=== PATIENT | female | born 1955 | race Caucasian/White ===

== ENCOUNTER 2019-07-22 01:02 | Emergency (ER) | payer OTHER ==
[~2019-07-22] VITALS: Ht 157.5 cm; Wt 113.4 kg
[~2019-07-22 01:02] MED LIST: ASPIRIN325 PO; IRON325 PO; LEVOTHYROXINE 0.1 MG PO; LISINOPRIL10 MG PO; PERCOCET 5-3251 EACH PO; PRILOSEC40 MG PO; RED YEAST RICE600 M1 PO
[2019-07-22] MEDS ORDERED: LEVO-T100 MCG PO (01:08)
[2019-07-22] MEDS ORDERED: BENTYL 10 MG CA10 M1 PO (01:10)
[2019-07-22] MEDS ORDERED: NORVASC 2.5 MG2.5 M1 PO (01:10)
[2019-07-22] MEDS ORDERED: ALAVERT10 M1 PO (01:11)
[2019-07-22] MEDS ORDERED: [UNRECOGNIZED DRUG - OTHER] (01:11)
[2019-07-22] MEDS ORDERED: REFRESH TEARS15 ML (01:12)
[2019-07-22 03:42] VITALS: BP 141/77
== END 2019-07-22 03:30 | disposition home or self-care (01) ==
LOC: ER 01:02
DX: M25.561 Pain in right knee (principal); I10 Essential (primary) hypertension; E03.9 Hypothyroidism, unspecified; K21.9 Gastro-esophageal reflux disease without esophagitis; Z90.49 Acquired absence of other specified parts of digestive tract; Z90.710 Acquired absence of both cervix and uterus; Z90.721 Acquired absence of ovaries, unilateral; Z88.0 Allergy status to penicillin; Z88.8 Allergy status to other drugs, medicaments and biological substances; Z87.891 Personal history of nicotine dependence

== ENCOUNTER 2020-12-31 19:01 | Inpatient (IN) | payer OTHER ==
[~2020-12-31] VITALS: Ht 157.5 cm; Wt 127.0 kg
[~2020-12-31 19:01] MED LIST changes: +ALAVERT10 M1 PO; +BENTYL 10 MG CA10 M1 PO; +LEVO-T100 MCG PO; +NORVASC 2.5 MG2.5 M1 PO; +REFRESH TEARS15 ML; +[UNRECOGNIZED DRUG - OTHER]
[2020-12-31 19:05] VITALS: BP 128/100
[2020-12-31 19:42] LABS: ABSOLUTE NEUTROPHILS 11.3 thou/uL (1.4-8.2); BASOPHILS 0.8 % (0.0-2.0); EOSINOPHILS 0.7 % (0.0-3.0); HEMATOCRIT 40.6 % (37.0-47.0); HEMOGLOBIN 13.1 gm/dL (12.0-15.0); LYMPHOCYTES 19.7 % (24.0-44.0); MCH 28.2 pg (26.0-34.0); MCHC 32.3 g/dL (28.0-37.0); MCV 87.5 fL (80.0-100.0); MONOCYTES 5.3 % (1.0-8.0); PLATELET COUNT 353 thou/uL (150-400); POLYS 73.5 % (36.0-66.0); RBC 4.63 mil/uL (4.20-5.00); RDW 15.6 % (10.5-14.5); WBC 15.3 thou/uL (4.0-11.0)
[2020-12-31 19:51] LABS: POTASSIUM 3.7 mmol/L (3.5-5.1)
[2020-12-31 22:24] VITALS: BP 141/66
--- NOTE | 2020-12-31 22:25 | NUR ---
HAND OFF TOOL SENT TO FLOOR
[2020-12-31] MEDS ORDERED: CANDESARTAN CIL32 MG PO (22:29)
[2020-12-31] MEDS ORDERED: KLOR-CON M2020 MEQ PO (22:31)
[2020-12-31] MEDS ORDERED: LIPITOR10 MG PO (22:31)
[2020-12-31] MEDS ORDERED: ASPIRIN EC325 M1 PO (22:32)
[2020-12-31 22:45] VITALS: BP 135/51
[2020-12-31 23:10] VITALS: BP 153/80
--- NOTE | 2021-01-01 02:24 | NUR ---
PT ARRIVED FROM THE ER @2300 A&OX4 ADMISSION DONE AND PT ORIENTED TO THE UNIT. RT FOOT SPLINT INTACT. PT NPO AT MIDNIGHT FOR SX TOMORROW. CLEAR LUNGS SOUNDS. IV INTACT AND SALINE LOCK. SCD ON LEFT FOOT. PT DENIES NAUSEA AND VOMITTING UP WITH ASSISTX1 TO THE BSC. FALL PREC IN PLACE AND CALL LIGHT AT REACH WILL CONT TO MONITOR.
[2021-01-01 03:50] VITALS: BP 130/90
[2021-01-01 05:08] LABS: HEMATOCRIT 35.9 % (37.0-47.0); HEMOGLOBIN 11.6 gm/dL (12.0-15.0); MCH 28.8 pg (26.0-34.0); MCHC 32.3 g/dL (28.0-37.0); RBC 4.03 mil/uL (4.20-5.00); RDW 16.1 % (10.5-14.5); WBC 15.6 thou/uL (4.0-11.0)
[2021-01-01 06:08] LABS: CALCIUM 8.3 mg/dL (8.5-10.1); CREATININE 0.8 mg/dL (0.6-1.0); POTASSIUM 3.8 mmol/L (3.5-5.1)
[2021-01-01 07:10] VITALS: BP 146/76
--- NOTE | 2021-01-01 07:22 | EKG ---
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
--- NOTE | 2021-01-01 12:51 | NUR ---
ASSESSMENT: CM REVIEWED CHART AND SPOKE WITH PT AT THE BEDSIDE ALONG WITH HER . PT IS ALERT AND ORIENTED X4. PT WAS ADMITTED DUE TO RT ANKLE FAX. PATIENT HAS BEEN MEDICALLY CLEARED FOR SURGERY, [facility]THO IS CONSULTED AND AWAITING INPUT FROM THEM AT THIS TIME. PT REPORTS LIVING IN A HANDICAP ACCESSIBLE HOME WITH NO STEPS TO ENTER OR ONCE INSIDE. PT REPORTS SHE HAS ALOT OF DME AT HOME INCLUDING WALKER, WHEECHAIR, AND CANE. PT REPORTS SHE HAS A BATH BENCH IF N EEDED. PT REPORTS NORMALLY BEING INDEPENDENT WITH ADLS AND AMBULATION. PT IS SHOWING PATIENT PAY BUT WHEN CM MET WITH PATIENT SHE REPORTS HAVING [employer]URANCE STARTING December SHE IS AN EMPLOYEE HERE AT [employer]. CM NOTIFIED UR RN TO HAVE VERIFIED/CORRECTED. PT REPORTS NO HX OF HH/POST ACUTE CARE. AWAITING INPUT FROM ORTHO AT THIS TIME.
[2021-01-01 13:20] LABS: URINE BILIRUBIN NEGATIVE (Negative); URINE BLOOD TRACE (Negative); URINE CLARITY SL CLOUDY; URINE COLOR YELLOW; URINE GLUCOSE-RANDOM* NEGATIVE (Negative); URINE KETONES NEGATIVE (Negative); URINE LEUKOCYTES TRACE (Negative); URINE NITRITE POSITIVE (Negative); URINE PROTEIN (DIPSTICK) NEGATIVE (Negative); URINE SPECIFIC GRAVITY 1.025 (1.005-1.035); URINE UROBILINOGEN 0.2 E.U./dl (0.2-1.0)
[2021-01-01 13:36] LABS: SQUAMOUS >10 Many /LPF (0-3)
[2021-01-01 13:37] LABS: CASTS None Seen /LPF (None Seen); MUCUS 4-6 Moderate strn/LPF (None Seen); URINE WBC >25 Many /HPF (NONE SEEN)
[2021-01-01 13:38] LABS: URINE RBC 1-2 Rare /HPF (NONE SEEN)
[2021-01-01 13:39] LABS: BACTERIA >30 Many /HPF (None Seen); CRYSTALS None Seen /LPF (None Seen)
[2021-01-01 13:42] LABS: WBC CLUMPS Occasional (None Seen)
--- NOTE | 2021-01-01 14:30 | NUR ---
ASSUMED PT CARE AROUND 0700. PT ALERT X ORIENTED X 4. ON ROOM AIR. IV RT/AC/SL.1 X PERSON ASST TO BEDSIDE COMMODE. NPO FOR SURGERY SINCE MIDNIGHT. PAIN PARTIALLY CONTROLLED BY MORPINE. SPLINT ON THE RIGHT ANKLE. REFUSED BP MEDICINE. URINE SPECIMEN FOR UA COLLECTED AND SENT TO LAB BY RN. WENT FOR SURGERY AROUND 1430.
[2021-01-01 17:45] VITALS: BP 148/91
[2021-01-01 19:50] VITALS: BP 139/77
[2021-01-01 20:39] VITALS: BP 122/76
[2021-01-02 00:20] VITALS: BP 138/76
--- NOTE | 2021-01-02 01:05 | NUR ---
ASSESSED AT START OF SHIFT. PT RESTING WELL IN BED. PAIN WELL CONTROLLED. REQUESTED FOR PO PAIN MEDICATION AND LORATIDINE MEDS GIVEN. DIGITAL CONTENT MANAGER SLIP OPERATOR NOTIFIED. RT FOOT DRESSING C/D/I WITH TIFFANY WRAP AND IN SPLINTS. IV INTACT AND FLUIDS INFUSING. UP WITH ASSIST X1 TO BSC. DENIES NAUSEA AND VOMITING. FALL PREC IN PLACE AND CALL LIGHT AT REACH WILL CONT TO MONITOR.
[2021-01-02 03:42] VITALS: BP 120/73
[2021-01-02 04:42] LABS: HEMATOCRIT 31.8 % (37.0-47.0); HEMOGLOBIN 10.4 gm/dL (12.0-15.0); MCH 28.9 pg (26.0-34.0); MCHC 32.8 g/dL (28.0-37.0); MCV 87.9 fL (80.0-100.0); RBC 3.62 mil/uL (4.20-5.00); RDW 15.9 % (10.5-14.5); WBC 12.4 thou/uL (4.0-11.0)
[2021-01-02 08:45] VITALS: BP 135/72
--- NOTE | 2021-01-02 10:29 | NUR ---
ASSUMED CARE OF PT AT 0700 THIS MORNING. PT WAS A/OX4, SKIN GRPH WITH BANDADGE ON RIGHT OCCIPITAL LOBE AND DRESSING OVER RIGHT EYE, C/D/I. SKIN INTACT, W/D/ATR. ASSESSMENT CHARTED AND OTHERWISE UNREMARKABLE. IV IN LEFT FA, SL. PT IS TO BE DISCHARGED WHEN FAMILY IS READY. CALL LIGHT AND OTHER NEEDS ARE WITHIN REACH. MEDS AND TX GIVEN NEEDED AND SCHEDULED. PT IS BEING DISCHARGED AT 1015, IV IS DC'D, DISCHARGE ORDERS AND EDUCATION MATERIAL GIVEN TO FAMILY AND SIGNED BY PT.
[2021-01-02] MEDS ORDERED: METFORMIN HCL500 M3 PO (11:04)
[2021-01-02] MEDS ORDERED: KEFLEX250 MG PO (11:04)
[2021-01-02] MEDS ORDERED: COLACE100 MG PO (11:05)
[2021-01-02] MEDS ORDERED: NORCO5 PO (11:05)
--- NOTE | 2021-01-02 12:53 | NUR ---
ASSUMED CARE OF PT AT 0700 THIS MORNING. PT WAS ADMITTED FOR RIGHT ANKLE FX. INCISIONS ARE COVERED WITH PADDING AND TIFFANY WRAP, C/D/I. PT IS A/OX4, ASSESSMENT CHARTED AND OTHERWISE UNREMARKABLE. CALL LIGHT AND OTHER NEEDS ARE WITHIN REACH. PT CAN AMBULATE WITH WALKER AND IS SB ASST. IV IN RIGHT FA, SL WITH ANTIBIOTICS RUNNING AT 330ML/HR. MEDS AND TX GIVEN NEEDED AND SCHEDULED. PT MAY BE DISCHARGED LATER IN THE AFTERNOON. WAITING ON DR. GALAVIZ TO DETERMINE.
[2021-01-02 13:18] VITALS: BP 135/72
--- NOTE | 2021-01-04 06:47 | NUR ---
PATIENT D/C PRIOR TO OT EVAL BEING PERFORMED
== END 2021-01-02 14:51 | disposition home or self-care (01) | DRG 493 ==
LOC: ER 19:01 → EROBS 22:10 → 4S 22:51
PROVIDERS: Emergency Medicine; Hospitalist; Nurse Practitioner Family; ADMIT Surgery; ATTEND Surgery
PROC: 0SSF0ZZ Reposition Right Ankle Joint, Open Approach (ICD-10-PCS; principal; 2020-12-31)
PROC: 0QSG04Z Reposition Right Tibia with Internal Fixation Device, Open Approach (ICD-10-PCS; 2021-01-01)
DX: S82.841A Displaced bimalleolar fracture of right lower leg, initial encounter for closed fracture (principal); N39.0 Urinary tract infection, site not specified; Z68.43 Body mass index [BMI] 50.0-59.9, adult; E03.9 Hypothyroidism, unspecified; I10 Essential (primary) hypertension; E78.5 Hyperlipidemia, unspecified; E66.01 Morbid (severe) obesity due to excess calories; S82.51XA Displaced fracture of medial malleolus of right tibia, initial encounter for closed fracture; K21.9 Gastro-esophageal reflux disease without esophagitis; Z90.710 Acquired absence of both cervix and uterus; Z90.721 Acquired absence of ovaries, unilateral; Z90.49 Acquired absence of other specified parts of digestive tract; Z87.891 Personal history of nicotine dependence; Z88.0 Allergy status to penicillin; Z88.8 Allergy status to other drugs, medicaments and biological substances; Z79.82 Long term (current) use of aspirin; Z79.899 Other long term (current) drug therapy; W18.39XA Other fall on same level, initial encounter; Y93.89 Activity, other specified; Y92.89 Other specified places as the place of occurrence of the external cause; Y99.8 Other external cause status
CPT/HCPCS: 10102; 50010

== ENCOUNTER → 2021-02-18 | Outpatient (CLI) | payer OTHER ==
[~2021-02-18] MED LIST changes: +ASPIRIN EC325 M1 PO; +CANDESARTAN CIL32 MG PO; +COLACE100 MG PO; +KEFLEX250 MG PO; +KLOR-CON M2020 MEQ PO; +LIPITOR10 MG PO; +METFORMIN HCL500 M3 PO; +NORCO5 PO
== END ==
LOC: ULTRA 08:48
PROVIDERS: ATTEND Family Medicine
DX: K76.0 Fatty (change of) liver, not elsewhere classified (principal)

== ENCOUNTER → 2021-03-15 | Outpatient (CLI) | payer OTHER | LOC: NUC 09:32 | PROVIDERS: ATTEND Family Medicine | DX: S82.891A Other fracture of right lower leg, initial encounter for closed fracture (principal); M80.00XA Age-related osteoporosis with current pathological fracture, unspecified site, initial encounter for fracture; M85.88 Other specified disorders of bone density and structure, other site; X58.XXXA Exposure to other specified factors, initial encounter; Y92.89 Other specified places as the place of occurrence of the external cause; Y93.89 Activity, other specified; Y99.8 Other external cause status ==

== ENCOUNTER 2021-06-01 10:34 | Emergency (ER) | payer OTHER ==
[~2021-06-01] VITALS: Ht 157.5 cm; Wt 117.9 kg
[~2021-06-01 10:34] MED LIST changes: -LEVO-T100 MCG PO; +LEVOTHYROXINE137 MCG PO
[2021-06-01 11:27] LABS: ABSOLUTE NEUTROPHILS 7.6 thou/uL (1.4-8.2); BASOPHILS 1.1 % (0.0-2.0); EOSINOPHILS 1.7 % (0.0-3.0); HEMATOCRIT 39.6 % (37.0-47.0); HEMOGLOBIN 12.5 gm/dL (12.0-15.0); LYMPHOCYTES 20.1 % (24.0-44.0); MCHC 31.6 g/dL (28.0-37.0); MCV 85.5 fL (80.0-100.0); PLATELET COUNT 349 thou/uL (150-400); POLYS 70.1 % (36.0-66.0); RBC 4.63 mil/uL (4.20-5.00); RDW 15.5 % (10.5-14.5); WBC 10.9 thou/uL (4.0-11.0)
[2021-06-01 11:37] LABS: CALCIUM 9.2 mg/dL (8.5-10.1); CREATININE 0.8 mg/dL (0.6-1.0); POTASSIUM 3.9 mmol/L (3.5-5.1)
[2021-06-01 11:38] LABS: URINE BILIRUBIN NEGATIVE (Negative); URINE BLOOD TRACE (Negative); URINE COLOR YELLOW; URINE GLUCOSE-RANDOM* NEGATIVE (Negative); URINE KETONES NEGATIVE (Negative); URINE PROTEIN (DIPSTICK) NEGATIVE (Negative); URINE SPECIFIC GRAVITY >= 1.030 (1.005-1.035); URINE UROBILINOGEN 0.2 E.U./dl (0.2-1.0)
[2021-06-01 11:39] LABS: URINE CLARITY HAZY; URINE LEUKOCYTES-REFLEX 1+ (Negative); URINE NITRITE-REFLEX POSITIVE (Negative)
[2021-06-01 11:42] LABS: APTT 26.8 Seconds (24.5-32.8); INR 0.92; PROTIME 10.1 Seconds (10.5-12.1)
[2021-06-01 11:44] LABS: ALBUMIN 3.3 g/dL (3.4-5.0); TOTAL BILIRUBIN 0.2 mg/dL (0.2-1.0)
[2021-06-01 12:00] LABS: CASTS None Seen /LPF (None Seen); MUCUS 4-6 Moderate strn/LPF (None Seen); SQUAMOUS 4-10 Moderate /LPF (0-3)
[2021-06-01 12:01] LABS: BACTERIA-REFLEX >30 Many /HPF (None Seen); CRYSTALS None Seen /LPF (None Seen); URINE RBC 1-2 Rare /HPF (NONE SEEN); URINE WBC-REFLEX >25 Many /HPF (0-5)
--- NOTE | 2021-06-01 13:25 | EKG ---
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 Member: ANNE-MARIE : 1955 Requested By: Rachel Blair Order Number: [id number] MD: Denys Wood Measurements Intervals [place] Rate: 62 P: 50 [place]: 198 QRS: -20 QRSD: 109 T: 44 QT: 481 QTc: 489 Interpretive Statements Sinus rhythm Left ventricular hypertrophy Compared to ECG 12/31/2020 21:37:44 Myocardial infarct finding no longer present Electronically Signed On 06-01-2021 13:25:10 MASH TUB COOKER by Denys Wood [email or web address] <ELECTRONICALLY SIGNED> By: Denys Wood MD, FACC 06/01/21 1325 1059 1059 Denys Wood MD, FACC /EPI
[2021-06-01] MEDS ORDERED: ATIVAN0.5 M1 PO ×2 (18:45)
[2021-06-01] MEDS ORDERED: MACROBID 100 M100 M1 PO ×2 (18:52)
[2021-06-01 18:53] VITALS: BP 145/87
== END 2021-06-01 18:53 | disposition home or self-care (01) ==
LOC: ER 10:34
PROVIDERS: Nurse Practitioner
DX: G43.909 Migraine, unspecified, not intractable, without status migrainosus (principal); R42 Dizziness and giddiness; R11.0 Nausea; I10 Essential (primary) hypertension; E03.9 Hypothyroidism, unspecified; K21.9 Gastro-esophageal reflux disease without esophagitis; E66.9 Obesity, unspecified; Z68.42 Body mass index [BMI] 45.0-49.9, adult; Z98.890 Other specified postprocedural states; Z90.721 Acquired absence of ovaries, unilateral; Z79.84 Long term (current) use of oral hypoglycemic drugs; Z79.82 Long term (current) use of aspirin; Z79.1 Long term (current) use of non-steroidal anti-inflammatories (NSAID); Z79.891 Long term (current) use of opiate analgesic; Z79.899 Other long term (current) drug therapy; Z88.0 Allergy status to penicillin; Z88.6 Allergy status to analgesic agent; Z88.8 Allergy status to other drugs, medicaments and biological substances; Z87.891 Personal history of nicotine dependence

== ENCOUNTER 2021-06-04 09:38 | Inpatient (IN) | payer OTHER ==
[~2021-06-04] VITALS: Ht 157.5 cm; Wt 121.6 kg
[~2021-06-04 09:38] MED LIST changes: +ATIVAN0.5 M1 PO; +MACROBID 100 M100 M1 PO
[2021-06-04 09:50] VITALS: BP 145/69
[2021-06-04 10:48] LABS: HEMATOCRIT 42.7 % (37.0-47.0); MCH 27.4 pg (26.0-34.0); MCHC 33.9 g/dL (28.0-37.0); MCV 80.9 fL (80.0-100.0); RBC 5.28 mil/uL (4.20-5.00); RDW 19.1 % (10.5-14.5); WBC 14.8 thou/uL (4.0-11.0)
[2021-06-04 10:51] LABS: HEMOGLOBIN 14.5 gm/dL (12.0-15.0)
[2021-06-04 11:26] LABS: CALCIUM 9.6 mg/dL (8.5-10.1); CREATININE 1.5 mg/dL (0.6-1.0); POTASSIUM 4.2 mmol/L (3.5-5.1)
[2021-06-04 11:34] LABS: TOTAL BILIRUBIN 1.8 mg/dL (0.2-1.0); TOTAL PROTEIN 6.8 g/dL (6.4-8.2)
[2021-06-04 13:56] LABS: URINE BILIRUBIN 2+ (Negative); URINE BLOOD NEGATIVE (Negative); URINE CLARITY SL CLOUDY; URINE COLOR YELLOW; URINE GLUCOSE-RANDOM* NEGATIVE (Negative); URINE KETONES TRACE (Negative); URINE PROTEIN (DIPSTICK) 1+ (Negative)
[2021-06-04 14:04] LABS: ICTOTEST (BILI CONFIRMATORY) Positive (Negative); URINE LEUKOCYTES-REFLEX 1+ (Negative); URINE NITRITE-REFLEX POSITIVE (Negative)
[2021-06-04 14:12] LABS: MUCUS 4-6 Moderate strn/LPF (None Seen); SQUAMOUS 4-10 Moderate /LPF (0-3)
[2021-06-04 14:13] LABS: CRYSTALS None Seen /LPF (None Seen); URINE RBC 1-2 Rare /HPF (NONE SEEN)
[2021-06-04 14:14] LABS: FINE GRANULAR CASTS 0-3 Few /LPF (None Seen); HYALINE CASTS 0-3 Few /LPF (None Seen)
[2021-06-04 14:30] LABS: ABSOLUTE NEUTROPHILS 13.6 thou/uL (1.4-8.2)
[2021-06-04 14:36] LABS: ANISOCYTOSIS 2+
[2021-06-04 14:37] LABS: LARGE PLATELETS OCCASIONAL; POIKILOCYTOSIS 1+
[2021-06-04 14:38] LABS: PLATELET COUNT 276 thou/uL (150-400); PLATELET ESTIMATE NORMAL
[2021-06-04 15:36] LABS: URINE BILIRUBIN 2+ (Negative); URINE BLOOD NEGATIVE (Negative); URINE CLARITY CLEAR; URINE COLOR YELLOW; URINE GLUCOSE-RANDOM* NEGATIVE (Negative); URINE KETONES TRACE (Negative); URINE PROTEIN (DIPSTICK) 1+ (Negative); URINE SPECIFIC GRAVITY 1.015 (1.005-1.035)
[2021-06-04 15:40] LABS: URINE LEUKOCYTES-REFLEX 1+ (Negative); URINE NITRITE-REFLEX POSITIVE (Negative)
[2021-06-04 15:42] LABS: BACTERIA-REFLEX None Seen /HPF (None Seen); SQUAMOUS 0-3 Few /LPF (0-3); URINE RBC None Seen /HPF (NONE SEEN); URINE WBC-REFLEX 0-5 Rare /HPF (0-5)
[2021-06-04 15:43] LABS: CRYSTALS None Seen /LPF (None Seen)
[2021-06-04] MEDS ORDERED: PRAVACHOL40 MG PO ×2 (17:38)
[2021-06-04] MEDS ORDERED: GLUCOSAMINE HC500 M1 PO ×2 (17:40)
--- NOTE | 2021-06-04 20:10 | NUR ---
Pt. arrived to the unit from the emergency room accompanied by staff. She is alert and oriented. Admission assessment and history is completed. Bed alarm is on. No c/o pain.
[2021-06-04 20:12] VITALS: BP 146/71
--- NOTE | 2021-06-05 00:30 | NUR ---
Pt. with elevated temp and low blood pressure. (see vs). Call palced to Raissa PALAFOX.
--- NOTE | 2021-06-05 01:30 | NUR ---
Blood pressure and tmeperature retaken and bp taken manually. Some improvement noted (see vs). Raissa PALAFOX called and notified and no new orders at this time.
[2021-06-05 01:40] VITALS: BP 110/40
[2021-06-05] MEDS ORDERED: COQ-10100 MG PO ×2 (03:09)
[2021-06-05] MEDS ORDERED: POTASSIUM GLUCONATE PO ×2 (03:11)
[2021-06-05] MEDS ORDERED: CALTRATE 600+D1 EAC1 PO ×2 (03:13)
[2021-06-05] MEDS ORDERED: ONDANSETRON HCL4 M2 PO ×2 (03:14)
[2021-06-05] MEDS ORDERED: TYLENOL ES PO ×2 (03:16)
[2021-06-05] MEDS ORDERED: XIIDRA1 EACH EA. EYE ×2 (03:19)
[2021-06-05 05:11] VITALS: BP 140/48
[2021-06-05 06:14] LABS: ABSOLUTE NEUTROPHILS 5.9 thou/uL (1.4-8.2); BASOPHILS 0.4 % (0.0-2.0); EOSINOPHILS 0.6 % (0.0-3.0); HEMATOCRIT 34.2 % (37.0-47.0); LYMPHOCYTES 14.9 % (24.0-44.0); MCH 27.3 pg (26.0-34.0); MCHC 32.3 g/dL (28.0-37.0); MCV 84.6 fL (80.0-100.0); MONOCYTES 5.7 % (1.0-8.0); PLATELET COUNT 237 thou/uL (150-400); POLYS 78.4 % (36.0-66.0); RBC 4.05 mil/uL (4.20-5.00); RDW 15.9 % (10.5-14.5); WBC 7.5 thou/uL (4.0-11.0)
[2021-06-05 06:26] LABS: HEMOGLOBIN 11.1 gm/dL (12.0-15.0)
--- NOTE | 2021-06-05 06:38 | NUR ---
Pt. rested quietly during the night when checked on during frequent rounds. Up to the toilet with walker and assistance of one. Afebrile this am.
[2021-06-05 06:51] LABS: CALCIUM 8.2 mg/dL (8.5-10.1); MAGNESIUM 1.9 mg/dL (1.8-2.4); POTASSIUM 3.7 mmol/L (3.5-5.1); TOTAL BILIRUBIN 0.8 mg/dL (0.2-1.0); TOTAL PROTEIN 5.1 g/dL (6.4-8.2)
[2021-06-05 08:23] VITALS: BP 104/53
--- NOTE | 2021-06-05 12:42 | EKG ---
[address] [place] [address] ELECTROCARDIOGRAM REPORT Name: TORSTEN MENENDEZ Room #: 458-P ADM IN M.R.#: [id number] Admission: 06/04/21 Attend Phys: Alejandro Villasenor MD Discharge: Date of : 57 Report #: [id number] [facility] ED Test Date: 2021-06-04 Test Time: 09:44:46 Pat Name: TORSTEN MENENDEZ Department: Room: 458 Gender: F Bonding Molder: DELMIS : 1955 Requested By: Satish Lewis Order Number: [id number] MD: Bridger Brunson Measurements Intervals [place] Rate: 114 P: 35 CT: 153 QRS: -55 QRSD: 98 T: 18 QT: 320 QTc: 441 Interpretive Statements Sinus tachycardia Left anterior fascicular block Low voltage, precordial leads Left ventricular hypertrophy Anterior Q waves, possibly due to LVH Compared to ECG 06/01/2021 10:59:53 Left anterior fascicular block now present Low QRS voltage now present Q waves now present Sinus rhythm no longer present Electronically Signed On 06-05-2021 12:42:38 ACCESS SERVICE REPRESENTATIVE by Bridger Brunson [email or web address] <ELECTRONICALLY SIGNED> By: Bridger Brunson MD 06/05/21 1242 0944 Bridger Brunson MD /EPI
[2021-06-05 20:12] VITALS: BP 116/94
--- NOTE | 2021-06-06 04:12 | NUR ---
Pt. rested quietly during the night when checked on during frequent rounds. She ambulated to the bathroom with walker without difficulty. No c/o pain.
--- NOTE | 2021-06-06 07:47 | O ---
[facility] [place] [address] OPERATIVE REPORT Name: TORSTEN MENENDEZ Room #: 458-P [facility] IN M.R.#: [id number] Admission: 06/04/21 Attend Phys: Alejandro Villasenor MD Discharge: Date of : 57 Report #: [id number] THIS REPORT FOR: cc: Best Mercado MD, Neal A. MD Flum,Raffi Suosa MD ~ DATE OF SERVICE: 06/05/2021 PREOPERATIVE DIAGNOSES: Right ureteral stone, urinary tract infection. POSTOPERATIVE DIAGNOSES: Right ureteral stone, urinary tract infection. PROCEDURES PERFORMED: Cystoscopy, right retrograde pyelogram, right ureteral stent placement. SURGEON: Raffi Lion MD FIRE POT OPERATOR: None. ANESTHESIA: General. ESTIMATED BLOOD LOSS: Minimal. FLUIDS: See anesthesia flow sheet. SPECIMENS: None. DRAINS: Right 6-Citizen [place] x 24 cm double-J ureteral stent. COMPLICATIONS: None. INDICATIONS: This is a 65-year-old woman admitted with fevers, right-sided abdominal pain. CT scan demonstrated a 3 x 7 mm right distal ureteral stone, discussed the need for urgent right ureteral stent placement. Risks, benefits and alternatives were discussed at length the risks including bleeding, infection, damage to the urethra, bladder, ureteral stricture, need for stent, need for subsequent procedures, as well as cardiopulmonary complications. She acknowledged that she understood these risks. She has pertinent questions, which were answered and ultimately elected to proceed. Of note, we specifically discussed that this is a temporizing measure and that she would need to follow up for a second procedure to remove her ureteral stent and address her stone. She and her acknowledged they understood this. PROCEDURE AND FINDINGS: The patient was identified in the preoperative holding area. She was marked and consented. She was transported to the operative suite [facility] [address] [place] [address] OPERATIVE REPORT Name: SHONJUANA JH Room #: 458-P [facility] IN .R.#: [id number] Admission: 06/04/21 Attend Phys: Alejandro Villasenor MD Discharge: Date of : 57 Report #: [id number] where general anesthetic was administered, positioned in the lithotomy position with all appropriate pressure points padded. She was prepped and draped in typical sterile fashion. Time-out was performed, confirming correct patient and procedure and laterality. She received preoperative IV antibiotics. We began by inserting the rigid cystoscope through the urethra into the bladder. Urethra and bladder neck were without abnormality. Bladder was unremarkable. No stones, tumors, or other lesions. Bilateral ureteral orifices were orthotopic in position, normal in appearance. The right ureteral orifice was gently cannulated with 5-Citizen [place] open-ended catheter. Retrograde pyelogram was performed. This demonstrated minimal hydronephrosis as was the case on her CT scan. I could not appreciate a discrete filling defect in the distal ureter. Nonetheless, given that she had not passed a stone and was continued to have fevers and intermittent pain, I felt it important to place a stent. A sensor wire was placed up the right ureter into the right kidney, coiled in the collecting system. A 6 Citizen [place] x 24 cm double-J ureteral stent was placed under radiographic guidance. Good proximal and distal curls confirmed radiographically. Cystoscope was repassed in the bladder. Good distal curl confirmed visually. Bladder was drained, scope was removed. The procedure was terminated. The patient was awakened and transported to the recovery room, having suffered no apparent complications, having tolerated the procedure well. <ELECTRONICALLY SIGNED> By: Raffi Lion MD 06/06/21 0747 1523 1613 Raffi Lion MD /nt
[2021-06-06 07:49] VITALS: BP 112/63
[2021-06-06 12:53] VITALS: BP 112/63
[2021-06-06] MEDS ORDERED: FLOMAX0.4 MG PO ×2 (13:14)
[2021-06-06] MEDS ORDERED: CEFDINIR300 MG PO ×4 (13:15→13:30)
[2021-06-06 13:25] VITALS: BP 112/63
[2021-06-06 13:26] VITALS: BP 112/63
--- NOTE | 2021-06-06 15:59 | NUR ---
Assumed pt care this am from overnight shift. Pt was alert and oriented 4x, and presented pleasant and calm. Pt had right ac IV and was given IV fluids during this shift per orders until IV was discontinued shortly before discharge. Pt morning and noon blood glucose monitored; insulin given at 1200 for 150-200 bg sliding scale. Pt was on standby assist, and was able to ambulate without walker by end of shift. Pt presented to provide companionship to pt, and was there to help pt pack her belongings and prepare for discharge. Discharge orders received from Dr. Villasenor @ 1300. Discharge packet was printed out and given to pt at this time. Pt IV discontinued and taken out. Pt taken out in wheelchair by MARKO Vera, with her acting as transporter to home. No concerns voiced before discharge or during discharge.
== END 2021-06-06 15:00 | disposition home or self-care (01) | DRG 660 ==
LOC: ER 09:38 → EROBS 17:16 → 4W 19:36
PROVIDERS: Emergency Medicine; Nurse Practitioner; ADMIT Hospitalist; ATTEND Hospitalist
PROC: 0T768DZ Dilation of Right Ureter with Intraluminal Device, Via Natural or Artificial Opening Endoscopic (ICD-10-PCS; principal; 2021-06-05)
PROC: BT1D1ZZ Fluoroscopy of Right Kidney, Ureter and Bladder using Low Osmolar Contrast (ICD-10-PCS; principal; 2021-06-05)
DX: N13.6 Pyonephrosis (principal); Z68.42 Body mass index [BMI] 45.0-49.9, adult; I10 Essential (primary) hypertension; N17.9 Acute kidney failure, unspecified; E03.9 Hypothyroidism, unspecified; K21.9 Gastro-esophageal reflux disease without esophagitis; E78.5 Hyperlipidemia, unspecified; E66.01 Morbid (severe) obesity due to excess calories; K76.0 Fatty (change of) liver, not elsewhere classified; R53.81 Other malaise; N28.1 Cyst of kidney, acquired; R74.01 Elevation of levels of liver transaminase levels; Z20.822 Contact with and (suspected) exposure to COVID-19; B96.1 Klebsiella pneumoniae [K. pneumoniae] as the cause of diseases classified elsewhere; Z90.710 Acquired absence of both cervix and uterus; Z90.721 Acquired absence of ovaries, unilateral; Z88.0 Allergy status to penicillin; Z88.8 Allergy status to other drugs, medicaments and biological substances; Z87.891 Personal history of nicotine dependence
CPT/HCPCS: 10040; 50010; 50101; 51767; 56674; 56815; 57160; 58565; 58732; 62110; 62900; 70005

== ENCOUNTER → 2021-06-15 | Outpatient (CLI) | payer OTHER ==
[~2021-06-15] MED LIST changes: +CALTRATE 600+D1 EAC1 PO; +CEFDINIR300 MG PO; +COQ-10100 MG PO; +FLOMAX0.4 MG PO; +GLUCOSAMINE HC500 M1 PO; +ONDANSETRON HCL4 M2 PO; +POTASSIUM GLUCONATE PO; +PRAVACHOL40 MG PO; +TYLENOL ES PO; +XIIDRA1 EACH EA. EYE
[2021-06-15 15:44] LABS: ABSOLUTE NEUTROPHILS 8.2 thou/uL (1.4-8.2); EOSINOPHILS 2.1 % (0.0-3.0); HEMATOCRIT 37.5 % (37.0-47.0); HEMOGLOBIN 11.8 gm/dL (12.0-15.0); LYMPHOCYTES 23.8 % (24.0-44.0); MCH 26.8 pg (26.0-34.0); MCHC 31.6 g/dL (28.0-37.0); MCV 84.7 fL (80.0-100.0); MONOCYTES 6.8 % (1.0-8.0); PLATELET COUNT 490 thou/uL (150-400); POLYS 66.3 % (36.0-66.0); RBC 4.42 mil/uL (4.20-5.00); RDW 16.3 % (10.5-14.5); WBC 12.3 thou/uL (4.0-11.0)
[2021-06-15 16:03] LABS: ALBUMIN 3.4 g/dL (3.4-5.0); CALCIUM 9.2 mg/dL (8.5-10.1); CREATININE 0.7 mg/dL (0.6-1.0); POTASSIUM 4.2 mmol/L (3.5-5.1); TOTAL BILIRUBIN 0.4 mg/dL (0.2-1.0); TOTAL PROTEIN 6.7 g/dL (6.4-8.2)
== END ==
LOC: LAB 15:17
PROVIDERS: ATTEND Family Medicine
DX: N10 Acute pyelonephritis (principal); E11.9 Type 2 diabetes mellitus without complications; N17.9 Acute kidney failure, unspecified

== ENCOUNTER → 2021-07-13 | Day surgery (SDC) | payer OTHER ==
[~2021-07-13] VITALS: Ht 157.5 cm; Wt 117.9 kg
[~2021-07-13] MED LIST changes: +ALAWAY10 ML OPHTHALMIC; +CALCIUM + D3 E1 EACH PO; +DULCOLAX STOOL100 M1 PO; +METFORMIN HCL500 M2 PO; +OMEPRAZOLE 20 M20 M1 PO; -XIIDRA1 EACH EA. EYE; +XIIDRA1 EACH OPHTHALMIC
--- NOTE | ~2021-07-13 | O ---
[facility] [place] [address] OPERATIVE REPORT Name: TORSTEN MENENDEZ Room #: REG [facility] M..#: [id number] Admission: 07/13/21 Attend Phys: Raffi Lion MD Discharge: Date of : 57 Report #: [id number] THIS REPORT FOR: cc: Best Mercado MD, Neal A. MD Flum,Raffi Sousa MD ~ DATE OF SERVICE: 07/13/2021 PREOPERATIVE DIAGNOSIS: Right ureteral stone. POSTOPERATIVE DIAGNOSIS: Right ureteral stone. PROCEDURES: Cystoscopy, right ureteral stent removal, right retrograde pyelogram, right ureteroscopy with laser lithotripsy and stone extraction. SURGEON: Raffi Lion MD TRANSPLANT SURGEON: None. ANESTHESIA: General. ESTIMATED BLOOD LOSS: Minimal. FLUIDS: See anesthesia flow sheet. SPECIMENS: Stone for analysis. DRAINS: None. COMPLICATIONS: None. INDICATIONS: A 65-year-old woman, previously admitted with sepsis, right distal ureteral stone. She underwent urgent stent placement at that time. Her infection was treated. She now returns for definitive treatment of her stone. Risks, benefits and alternatives discussed at length. Risks including bleeding, infection, damage to urethra, bladder, ureter, need for stent, need for subsequent procedures, as well as cardiopulmonary complications. She acknowledged that she understood these risks. She asked pertinent questions, which were answered and ultimately elected to proceed. PROCEDURE AND FINDINGS: The patient was identified in the preoperative holding area. She was marked and consented. She was transported to the operative suite where general anesthetic was administered. She was positioned in the lithotomy position with all appropriate pressure points padded. She was prepped and draped in typical sterile fashion. Timeout was performed, confirming correct patient, procedure and laterality. She received preoperative IV antibiotics. [address] [address] OPERATIVE REPORT Name: TORSTEN MENENDEZ Room #: REG [facility].#: [id number] Admission: 07/13/21 Attend Phys: Raffi Lion MD Discharge: Date of : 57 Report #: [id number] We began by inserting the rigid cystoscope through the urethra into the bladder. Urethra and bladder neck were without abnormality. Bladder was notable for an indwelling right ureteral stent with [id number] encrustation and edema about the right ureteral orifice. Otherwise, no stones, tumors or other lesions. Bilateral ureteral orifices were orthotopic in position, normal in appearance. The stent was grasped with a stent grasper, pulled out to the level of the meatus, cannulated with a sensor wire, which was placed up the stent, coiled in the area of the right collecting system. A 5-Kazakh open-ended catheter was placed over the wire into the distal ureter. Retrograde pyelogram was performed, demonstrated no hydronephrosis, no apparent filling defects. The distal ureter was difficult to appreciate. Kidney demonstrated some malrotation with a small collecting system, but again no hydronephrosis. We then replaced the wire, passed the 6.9-Kazakh rigid ureteroscope alongside the wire through the urethra into the bladder, carefully up the right ureteral orifice. Stone was identified, 1-2 cm proximal to the ureteral orifice, yellow nelson in color. We used the 200 micron holmium laser fiber at a power of up to 6 dewitt on dusting settings to dust the majority of the stone. There was one larger fragment remaining. We used a 1.9-Kazakh ZeroTip Nitinol basket to basket extract this and sent it for stone analysis. We passed the ureteroscope up the ureter, examined the entire length of the ureter. All stone had been removed. There was some edema, but the ureter was widely patent. I was able to see up into the renal pelvis, also signs of prior obstruction, but no obvious stones or other issues, I could see from the UPJ. Ureteroscope was carefully removed. I removed the wire, felt it safe to leave her without a stent. Cystoscope was repassed into the bladder. Bladder was drained, scope was removed and procedure was terminated. The patient was awakened and transported to recovery room, having suffered no apparent complications having tolerated the procedure well. By: 1512 1539 Raffi Lion MD /nt
[2021-07-13 15:17] VITALS: BP 145/67
[2021-07-13 16:39] VITALS: BP 145/67
--- NOTE | 2021-07-16 10:09 | PATH ---
[facility] [place] [address] PATHOLOGY RPT PROCEDURE Name: TORSTEN MENENDEZ Room #: REG [facility] M.R.#: [id number] Admission: 07/13/21 Date of : 57 Discharge: Report #: [id number] Path Case #: [id number] [facility] Accession Number: [id number] . 01 Material submitted: . ureter - RIGHT URETERAL STONE. Modifiers: right . 01 Clinical history: . CYSTOSCOPY WITH STONE MANIPULATION CALCULUS OF URETER, PERSONAL HISTORY OF URINARY TRACT INFECTIONS . 02 Diagnosis: Right ureteral stone: - Consistent with calculi. - The specimen is sent out for further processing. - Report pending outside analysis with results to follow in an addendum. [facility] 07/15/2021 0953 Local . 02 Electronically signed: . Sergio Wallis MD, Pathologist NPI- [id number] . 01 Gross description: . The specimen is received fresh, labeled "Torsten Menendez, right ureteral stone". Received are two light nelson to light terrell calculi measuring 0.3 and 0.4 cm in maximum dimensions. The specimen is forwarded to sendouts for further processing. ([facility]; 07/15/2021) QAC/QAC 07/15/2021 0954 Local . 02 Pathologist provided ICD-10: N20.1 . 02 CPT . 164000 Specimen Comment: A courtesy copy of this report has been sent to [phone] Specimen Comment: [id number] Specimen Comment: Report sent to / DR PHILLIPS Specimen Comment: A duplicate report has been generated due to demographic updates. Performed at: [address] [id number] MD Jaswinder Arcos MD Phone: [phone] Performed at: [address] [address] PATHOLOGY RPT PROCEDURE Name: TORSTEN MENENDEZ Room #: REG [facility]..#: [id number] Admission: 07/13/21 Date of : 57 Discharge: Report #: [id number] Path Case #: [id number] [address] [id number] MD Sergio Wallis MD Phone: [phone]
== END | disposition home or self-care (01) ==
LOC: OR 08:05
PROVIDERS: ATTEND Urology
DX: N20.1 Calculus of ureter (principal); I10 Essential (primary) hypertension; E11.9 Type 2 diabetes mellitus without complications; E03.9 Hypothyroidism, unspecified; K21.9 Gastro-esophageal reflux disease without esophagitis; M81.0 Age-related osteoporosis without current pathological fracture; Z98.890 Other specified postprocedural states; Z79.899 Other long term (current) drug therapy; Z20.822 Contact with and (suspected) exposure to COVID-19; Z87.891 Personal history of nicotine dependence; Z90.710 Acquired absence of both cervix and uterus; Z90.49 Acquired absence of other specified parts of digestive tract; Z88.0 Allergy status to penicillin; Z88.8 Allergy status to other drugs, medicaments and biological substances
CPT/HCPCS: 50010; 50101; 50164; 56674; 56815; 58510; 58565; 58732; 62110; 62900; 70005

== ENCOUNTER → 2021-08-26 | Outpatient (CLI) | payer OTHER ==
[2021-08-26 09:18] LABS: ABSOLUTE NEUTROPHILS 8.8 thou/uL (1.4-8.2); ABSOLUTE RETIC COUNT 0.0578 10^6/uL; BASOPHILS 1.2 % (0.0-2.0); EOSINOPHILS 2.5 % (0.0-3.0); HEMATOCRIT 36.3 % (37.0-47.0); HEMOGLOBIN 11.7 gm/dL (12.0-15.0); LYMPHOCYTES 20.1 % (24.0-44.0); MCH 26.8 pg (26.0-34.0); MCHC 32.1 g/dL (28.0-37.0); MCV 83.4 fL (80.0-100.0); MONOCYTES 6.6 % (1.0-8.0); OBSERVED RETIC COUNT 1.33 % (0.6-2.6); PLATELET COUNT 378 thou/uL (150-400); POLYS 69.6 % (36.0-66.0); RBC 4.36 mil/uL (4.20-5.00); RDW 16.7 % (10.5-14.5); WBC 12.7 thou/uL (4.0-11.0)
[2021-08-26 09:31] LABS: % SATURATION 9 % (20-39); IRON 30 ug/dL (50-170); TIBC 324 ug/dL (250-450)
[2021-08-26 09:34] LABS: ALBUMIN 3.5 g/dL (3.4-5.0); CREATININE 0.8 mg/dL (0.6-1.0); POTASSIUM 3.8 mmol/L (3.5-5.1); TOTAL BILIRUBIN 0.2 mg/dL (0.2-1.0); TOTAL PROTEIN 7.3 g/dL (6.4-8.2)
[2021-08-26 22:06] LABS: TESTOSTERONE* < 3 ng/dL (3-67)
[2021-08-27 14:08] LABS: HEMOGLOBIN 11.9 g/dL (11.1-15.9)
[2021-08-28 07:09] LABS: FREE TESTOSTERONE 1.3 pg/mL (0.0-4.2)
== END ==
LOC: LAB 08:23
PROVIDERS: ATTEND Internal Medicine
DX: D72.828 Other elevated white blood cell count (principal)